=== PATIENT | male | born 1965 | race African-American/Black ===

== ENCOUNTER → 2017-04-29 | Outpatient (REF) | LOC: WSOH 10:00 | DX: Z02.89 Encounter for other administrative examinations (principal) ==

== ENCOUNTER → 2017-05-06 | Outpatient (REF) | LOC: WSOH 15:10 | DX: Z02.89 Encounter for other administrative examinations (principal) ==

== ENCOUNTER → 2017-07-01 | Outpatient (REF) | LOC: WSOH 17:45 | DX: Z02.89 Encounter for other administrative examinations (principal) ==